=== PATIENT | female | born 1970 | race Caucasian/White ===

== ENCOUNTER → 2017-11-24 | Day surgery (SDC) | payer OTHER ==
[~2017-11-24] VITALS: Ht 162.6 cm; Wt 68.0 kg
[~2017-11-24] MED LIST: ALBUTEROL0.09 MG/A1 INH; AMOXICILLIN500 M3 PO; CHERATUSSIN AC118 M1 PO; CHERATUSSIN AC120 ML PO; MEDROL4 M2 PO; PREDNISONE 10MG10 M1 PO; PREDNISONE10 M2 PO; PROAIR HFA8.5 GM INH; ZITHROMAX Z-PA250 M1 PO; ZITHROMAX250 M2 PO
--- NOTE | 2017-11-24 10:28 | Operative Report ---
Operative/Inv Procedure Report Surgery Date: 11/24/17 Name of Procedure: 1. Arthroscopically aided repair of large osteochondritis dissecans lesion right tibia plafond fracture with or without internal fixation 2. Arthroscopic debridement and articular shaving of the right tibial plafond an Pre-Operative Diagnosis: Right tibial plafond osteochondritis dissecans Post-Operative Diagnosis: Same Estimated Blood Loss: scant Surgeon/Electronics Department Manager: Earnest Garza MD Anesthesia: laryngeal mask airway IV Fluids: See anesthesia record Implants: None Drains: None Specimens: None Tourniquet: 28 minutes Complications: None Condition: Stable Operative Indication: Patient's a 47-year-old female with chronic right ankle pain. MRI showed a large osteochondritis dissecans lesion of the distal tibial plafond. The patient has failed conservative treatment and wished to proceed with repair of the dissecans lesion with a sub-chondroplasty procedure. Operative/Procedure Note Note: Once informed consent was obtained and the correct limb was identified and the patient was brought to the operating room placed on table supine position. After administration of general endotracheal anesthesia the patient's right lower extremity was prepped and draped in usual sterile fashion. To begin the procedure C-arm fluoroscopy was brought in and the osteochondritis dissecans lesion was imaged in the AP and lateral planes. A small leonidas incision was made on the medial aspect of the distal tibia and using a spread technique we were able to get to the distal tibial bone. Care was taken avoid any nervous or venous structures. The 15-gauge drill guide was then placed on the bone and position was confirmed in the AP and lateral planes of the distal tibia. The drill was advanced to the osteochondritis dissecans under C-arm fluoroscopy. The Accu fill calcium phosphate mix was mixed on the back table and 2 cc of active fill calcium phosphate was injected into the distal tibia osteochondritis dissecans through a syringe. The calcium phosphate was let to set for 8 minutes. AP and lateral images under fluoroscopy revealed blushing of the defect of the distal tibia. Once the 8 minutes as the 18-gauge needle was removed without complication. The incision was closed with 3-0 nylon interrupted sutures. The next portion of the procedure was a standard right ankle arthroscopy. The leg was placed in a left well leg valencia and using a noninvasive ankle distractor lateral ankle arthroscopy portal was made with a leonidas and spread technique. The scope was introduced into the ankle joint and diagnostic arthroscopy was carried out. First of all most importantly there was no evidence of any calcium phosphate crystals within the ankle joint. The lateral gutter was devoid of any lesions. There is a small impingement lesion of the lateral ligament complex of the ankle. The posterior ankle was devoid of any lesions or ligamentous concerns. There was no loose bodies or impingement in the medial gutter. The articular surfaces of the talar dome was pristine with no evidence of any defects or wear. The area of concern of the distal tibia was noted using the endoscopic was a central to posterior lesion of the distal tibia. There was some mild roughening of the articular surface and there was a small flap of articular cartilage which was debrided after a medial portal was made with a 2.0 full-radius shaving device. The ankle was then irrigated with arthroscopic sterile saline solution and the instrument removed. The arthroscopic portals were closed with 3-0 nylon interrupted sutures and a sterile dressing applied and the patient was awakened taken from in stable condition.
--- NOTE | 2017-11-24 12:24 | RADIOLOGY REPORT ---
EXAMINATION: Intraoperative fluoroscopy CLINICAL INFORMATION: Right ankle subchondroplasty COMPARISON: None. TECHNIQUE: Intraoperative fluoroscopy was provided for use by Dr. Garza. A total of 7 images were saved to PACS. Radiologist was not present during today's imaging. TOTAL FLUOROSCOPIC TIME: 34 seconds FINDINGS\E\IMPRESSION: Intraoperative fluoroscopy provided for use by Dr. Garza. Please see operative note for detailed findings.
== END ==
LOC: STS 03:23
DX: M93.271 Osteochondritis dissecans, right ankle and joints of right foot (principal); M25.871 Other specified joint disorders, right ankle and foot; M19.90 Unspecified osteoarthritis, unspecified site; F17.210 Nicotine dependence, cigarettes, uncomplicated
CPT/HCPCS: 73600-RT; J0131; J0690; J2250; J2405